=== PATIENT | male | born 1935 | race Caucasian/White ===

== ENCOUNTER 2017-02-03 06:07 | Day surgery (SDC) | payer MEDICARE, BC ==
[~2017-02-03] VITALS: Ht 180.3 cm; Wt 80.8 kg
[2017-02-03] VITALS (12 sets, daily range): BP systolic 118–146; BP diastolic 61–81; PULSE 70–96; RESP 16–18; TEMP 97.7–98.6; O2SAT 92–99
[~2017-02-03 06:07] MED LIST: CLOP75 PO; FISH1000 PO; GLUC750T22 PO; GLUCTAB PO; LIPI40TA PO; PRIM50TA PO; PROT40TA PO; TAB-TAB PO; VIAG50TA PO
[2017-02-03 07:33] LABS: AUTOMATED NEUTROPHIL # 4.1 TH/MM3 (1.8-7.7); BASOPHIL % 0.3 % (0.0-2.0); EOSINOPHIL # 0.2 TH/MM3 (0-0.4); EOSINOPHIL % 3.3 % (0.0-4.0); HEMATOCRIT 39.9 % (39.0-51.0); LYMPH % 29.7 % (9.0-44.0); LYMPHOCYTE # 2.1 TH/MM3 (1.0-4.8); MEAN CELL VOLUME 87.5 FL (80.0-100.0); MEAN CORPUSCULAR HEMOGLOBIN 30.5 PG (27.0-34.0); MEAN CORPUSCULAR HGB CONC 34.9 % (32.0-36.0); MONO % 8.3 % (0.0-8.0); NEUT % 58.4 % (16.0-70.0); PLATELET COUNT 71 TH/MM3 (150-450); RED BLOOD COUNT 4.56 MIL/MM3 (4.50-5.90); RED CELL DISTRIBUTION WIDTH 13.2 % (11.6-17.2)
[2017-02-03 07:38] LABS: HEMO FLAGS AUTO DIFF
[2017-02-03 07:43] LABS: APTT (PATIENT) 26.3 SEC (24.3-30.1); INTERNATIONAL NORMALIZED RATIO 1.1 RATIO; PROTHROMBIN TIME - PATIENT 11.2 SEC (9.8-11.6)
[2017-02-03 07:53] LABS: BICARBONATE 29.2 MEQ/L (21.0-32.0); POTASSIUM 4.1 MEQ/L (3.5-5.1)
[2017-02-03 08:12] LABS: PLATELET ESTIMATE SMEAR LOW (NORMAL); PLATELET MORPHOLOGY NORMAL (NORMAL); SCAN/DIFF AUTO DIFF CONFIRMED
[2017-02-03] MEDS ORDERED: GLIM1TAB PO (08:17)
[2017-02-03] MEDS ORDERED: ASPI-516 CHEW (08:17)
[2017-02-03] MEDS ORDERED: RANI150T PO (08:17)
[2017-02-03] MEDS ORDERED: ATOR80TA45 PO (08:17)
[2017-02-03] MEDS ORDERED: SITA1TAB2 PO (08:17)
[2017-02-03] MEDS ORDERED: VIAG100T PO (08:17)
[2017-02-03] MEDS ORDERED: FINA15GE TOPICAL (08:17)
[2017-02-03] MEDS ORDERED: HEPARIN-NS/PF INJ 1,000 ML ONE (08:34)
[2017-02-03] MEDS ORDERED: MIDAZOLAM HCL 2 MG/2 ML VIAL ONE (08:40)
[2017-02-03] MEDS ORDERED: HEPARIN SODIUM - IV 10,000 UNITS/10 ML VIAL ONE (09:18)
[2017-02-03] MEDS ORDERED: CLOPIDOGREL 300 MG TAB ONE (11:25)
--- NOTE | 2017-02-03 11:30 | CATHPROC ---
MVP Interactive HIS Report Study Information Study Number Admission Scheduled Start Study Start [id number] Feb 03 2017 6:07AM 02/03/2017 Feb 03 2017 8:33AM [facility] Service Cath Endovascular Study Admit Source Facility Department Other [facility] Physician and Clinical Staff Initial [facility] Pharmacist Joel Fonseca RN Recorder Nichelle Joyce,RT(R) Scrub Ion Hugo,RT(R) Procedures Performed Procedure Location (Site) Vessel Name Angiogram (manual) Fem Sup. (left) Femoral Art Angiogram (manual) Fem Sup. (right) Femoral Art Angiogram (manual) Iliac L. Com. (L4) [place] Art. Angiogram (manual) Peroneal (left) Popliteal Angiogram (manual) Peroneal (right) Popliteal Angiogram (manual) Popliteal L (L10) Popliteal Angiogram (manual) Popliteal R (R10) Popliteal Angiogram (manual) Tib, Ant. (left) Popliteal Angiogram (manual) Tib, Post (Left) Popliteal EVENT ORGANIZER Tib, Ant. (left) Popliteal Wire insertion Fem Art (right) Femoral Art Equipment Time Machine Boss Description Size Mfg Part Number Used/Scraped [id number] 11:06 [employer] WIRE, ASAHI GRANDSLAM 300CM 300CM Used *[id number] DBP- CARDIOVASCULAR CATHETER, MICRO CROWN 09:45 [id number] Used SYSTEMS INC. 1.25MM *[id number] CARDIOVASCULAR VPR-[id number] 09:43 WIRE, FIRM (VIPER) 335 Used SYSTEMS INC. *[id number] CXI-4.0-35-135- 09:27 COOK/FREDERIC CATHETER, FR4 CXI SUPPORT FR 4 Used P-NS-0 *[id number] KCFW-5.0-38-55- 09:23 COOK/FREDERIC SHEATH, FR5 RAABE 55CM FR 5 Used RB 532-523 08:38 CORDIS/ FREDERIC RIM SUPER TORQUE CATHETER FR 5 Used *[id number] [id number] *[id number] 534-560T *[id number] [id number] *[id number] BALLOON, AMPHIRION DEEP 2 X [id number] 10:06 [employer] 150CM Used 210 150CM *[id number] BALLOON, AMPHIRION DEEP 2.5 X [id number] 10:25 [employer] 150CM Used 40 150CM *[id number] 08:38 MALLINCKRODT SYRINGE, ANGIOMAT 150ML 150ML [id number] Used WIRE, CHOICE PT 300CM PT EX. 15747-47 09:31 Meditech 300CM Used SUPP *[id number] 08:38 [employer] INDUSTRIES PACK, CCL CUSTOM * Used *[id number] [id number] 08:38 MEDLINE PACER PEN, SKIN DUAL W/ RULER * Used *[id number] 08:38 [employer] MEDICAL WIRE, EXCHANGE 260CM 3MMJ 260CM Used *[id number] 08:38 NAMIC MANIFOLD, 4 PORT * Used *3567634 [id number] 08:38 NAMIC TUBING, HIGH PRESSURE 48" 48" Used *3120523 [id number] 09:03 NAMIC TUBING, HIGH PRESSURE 48" 48" Used *2689193 08:38 NYCOMED OMNIPAQUE, 300 MG, 150ML 150ML [id number] Used [id number] 08:38 [place] [employer] BLANKET,WARM AIR CCL * Used *[id number] [id number] 08:38 TERUMO MEDICAL SHEATH, FR5 TERUMO (10CM) FR 5 Used *[id number] 09:12 TERUMO MEDICAL/FREDERIC CATHETER, FR5 ANGLED 100CM FR 5 [id number] *[id number] Used WIRE, ANGLE GLIDE STIFF .035 [id number] 09:23 TERUMO MEDICAL/FREDERIC 260CM Used 260CM *[id number] WIRE, ANGLE GLIDE STIFF .035 [id number] 08:38 TERUMO MEDICAL/FREDERIC 260CM Used 260CM *[id number] WIRE, ANGLED GLIDE .035 [id number] 08:58 TERUMO MEDICAL/FREDERIC 260CM Used 260CM *[id number] Equipment Model, Serial, Lot Number and Expiration Data Description Model Number Serial Number Lot Number Expiration Date CATHETER, FR4 CXI SUPPORT [id number] 11-23-2019 CATHETER, MICRO CROWN [id number] 06-19-2018 1.25MM SHEATH, FR5 RAABE 55CM [id number] 12-09-2018 WIRE, CHOICE PT 300CM PT EX. [id number] 05-17-2018 SUPP WIRE, FIRM (VIPER) 335 [id number] 09-19-2018 History: Risk Factors Family History of Hypertension Dyslipidemia Previous CA Previous Heart Failure Premature CAD No No No No No Prior Valve Prior PCI Prior CABG Prior CABGDate Surgery No No Yes 08/29/1995 Cerebrovascular Peripheral Artery Chronic Lung On Dialysis Diabetes Diabetes Therapy Disease Disease Disease No No No No Yes Oral Labs Hgb (g/dl) Hct (%) RBC (MIL/MM3) WBC (l/cumm) Platelets (thousands) 11.60-17.00 35.00-51.00 4.00-5.90 4.00-11.00 150.00-450.00 13.9 39.9 4.5 7 71 Glucose (mg/dl) BUN (mg/dl) Creatinine (mg/dl) BUN:Creatinine (1:x) 74.00-106.00 7.00-18.00 0.50-1.30 10.00-20.00 203 23 1.1 20.9 Na (meq/l) K (meq/l) Cl (meq/l) CO2 (mmol/L) Ca (mg/dl) 136.00-145.00 3.50-5.10 98.00-107.00 21.00-32.00 8.50-10.10 141 4.1 106 29.2 8.8 PT (sec) PTT (sec) INR (PTT:PT) 9.80-11.60 24.30-30.10 0.90-1.10 11.2 26.3 1.1 CPK-MB (ng/ML) 0.50-3.60 Not Drawn Medication Medication Total Dose (Bolus/Oral) Medication Total Dosage/Unit 1% XYLOCAINE 20 mL FENTANYL 75 mcg HEPARIN 7800 units PLAVIX 300 mg VERSED 0.5 mg Medications (Bolus/Oral) Medication Time Given Dosage/Unit Administered By Reason VERSED 02/03/2017 8:56:39 AM 0.5 mg Joel Fonseca 0.5 mg VERSED given in lab by Joel Fonscea RN via Peripheral IV. Ordered by Chris Grayson FENTANYL 02/03/2017 8:57:54 AM 25 mcg Joel Fonseca 25 mcg FENTANYL given in lab by Joel Fonseca RN via Peripheral IV. Ordered by Chris Grayson. 1% XYLOCAINE 02/03/2017 8:58:40 AM 20 mL Chris Grayson 20 mL 1% XYLOCAINE given in lab by Chris Grayson in Right Groin via Subcutaneous. FENTANYL 02/03/2017 9:21:50 AM 50 mcg Joel Fonseca 50 mcg FENTANYL given in lab by Joel Fonseca RN via Peripheral IV. HEPARIN 02/03/2017 9:27:59 AM 5800 units Joel Fonseca 5800 units HEPARIN given in lab by Joel Fonseca RN via Peripheral IV. HEPARIN 02/03/2017 9:51:09 AM 2000 units Joel Fonseca 2000 units HEPARIN given in lab by Joel Fonseca RN via Peripheral IV. 02/03/2017 11:30:37 PLAVIX 300 mg Joel Fonseca AM 300 mg PLAVIX given in lab by Joel Fonseca RN via Oral. Medication (Drip) Medication Time Given Dosage/Unit Concentration/Unit Diluent (ml) Solution IV Solutions 02/03/2017 8:38:29 AM 0 mL (IV) 500 NaCl .9 Patient arrived on IV Solutions in Left Antecubital via Peripheral IV. Pump/Drip Flow = 20 ml/hr usin g NaCl .9. Ordered by Chris Grayson Initial Case Assessment Cardiovascular HR Rhythm NIBP Chest Pain 74 reg 152/83 0 Skin color Skin Normal Warm Circulatory - Right Pulses Dorsalis Pedis Femoral 2 3 Scale (0,1,2,3,4,d) Circulatory - Left Pulses Dorsalis Pedis Femoral 1 3 Scale (0,1,2,3,4,d) Circulatory - Lower Extremities Color Lower Right Color Lower Left Normal Normal Neurological State Oriented to time-place- Alert Moves all extremities person Respiration - General Respiration Rate SpO2 (%) (B/min) 17 99 Final Case Assessment Cardiovascular HR Rhythm NIBP Chest Pain 75 REG 128/74 0 Edema Present Skin color Skin None Normal Warm Circulatory - Right Pulses Dorsalis Pedis Femoral 2 3 Scale (0,1,2,3,4,d) Circulatory - Left Pulses Dorsalis Pedis Femoral 1 3 Scale (0,1,2,3,4,d) Circulatory - Lower Extremities Color Lower Right Color Lower Left Normal Normal Neurological State Oriented to time-place- Alert Moves all extremities person Respiration - General Respiration Rate SpO2 (%) (B/min) 16 95 Chronological Log Time Study Chronological Log 8:15:00 Patient arrived via Bed. 8:16:00 Patient Name, D.O.B, / Armband Verified By R.N. 8:17:00 Consent signed by the physician and the patient and verified by the [facility] staff. 8:18:00 Pre-op and post- op instructions given; patient acknowledges understanding of instructions. 8:19:00 Verbal Stimulation=2 Physical Stimulation=2 Airway=2 Respiration=2 TOTAL=8. (0=absent, 1=li mited, 2=present) 8:36:36 Reference ECG taken Vitals capture started with the following parameters, Patient=Adult, Interval=5 min, Initial Pr qjmqgw=857 mmHg, 8:37:35 Deflation Rate=5 mmHg, Cuff placed on Right Arm 8:38:12 Patient has been NPO for More than 6Hrs. Skin Breakdown-none 8:38:14 8:38:19 HR=73 bpm, XKBC=307/79 mmhg, SpO2=99.0 %, Resp=12 B/min, Pain=0, Annabella=10, Bejarano=2 8:38:20 Patient Warmer Placed on the Table. 8:38:21 A # 20 IV was noted in the Antecubital (left). Grade = 0 Patient arrived on IV Solutions in Left Antecubital via Peripheral IV. Pump/Drip Flow = 20 ml/h r using NaCl .9. Ordered 8:38:29 by Chris Grayson 8:43:13 HR=73 bpm, RMCI=211/83 mmhg, UlD1=886.0 %, Resp=10 B/min, Pain=0, Annabella=10, Bejarano=2 8:43:22 History and physical on the chart or being dictated. Assessment: Initial Case, HR=74 BPM, Rhythm=reg, AQIR=192/83 mmhg, Chest Pain=0, Color=Normal, S kin = Warm Right Pulses: Jaguar Ped=2, Femoral=3 Left Pulses: Jaguar Ped=1, Femoral=3 8:43:23 Lower Right Extremities: Color=Normal Lower Left Extremities: Color=Normal Neurological: State=Alert, Ox3, SPIVEY Respiration: Resp=17 B/min, SpO2=99 % 8:44:26 Bilateral groins prepped with 2% chlorhexidine, and draped after a 3 minute waiting time. 8:44:37 left lower leg prepped 8:48:13 Pressure channel 1 zeroed. 8:48:19 HR=74 bpm, IVZH=875/72 mmhg, SpO2=99.0 %, Resp=12 B/min, Pain=0, Annabella=10, Bejarano=2 8:51:35 MD arrived. 8:53:14 HR=76 bpm, LIVN=213/78 mmhg, SpO2=98.0 %, Resp=8 B/min, Pain=0, Annabella=10, Bejarano=2 Time Out. Correct patient, correct procedure, correct physician, power injector not loaded with contrast with surgical 8:56:14 team present. Time Out Concurred by MD and individual staff in procedure. Time Out #2 - Consents verified, patient in correct position, all results are labled and display ed, safety precautions 8:56:24 taken, antibiotics administered. Time out concurred by MD, individual staff and MOBILE MARKETING SPECIALIST. 8:56:27 Case Start 8:56:28 Verbal Stimulation=2 Physical Stimulation=2 Airway=2 Respiration=2 TOTAL=8. (0=absent, 1=davis ited, 2=present) 8:56:39 0.5 mg VERSED given in lab by Joel Fonseca RN via Peripheral IV. Ordered by Zhang Grayson 8:57:54 25 mcg FENTANYL given in lab by Joel Fonseca RN via Peripheral IV. Ordered by Autumn Grayson 8:58:15 HR=73 bpm, WRTQ=705/75 mmhg, SpO2=97.0 %, Resp=12 B/min, Pain=0, Annabella=10, Bejarano=2 8:58:40 20 mL 1% XYLOCAINE given in lab by Chris Grayson in Right Groin via Subcutaneous. 8:59:46 Access site was Right Femoral Artery. 9:00:24 A wire was inserted via Fem Art (right). 9:00:39 A SHEATH, FR5 TERUMO (10CM) FR 5 was advanced into the Fem Art (right) using the Percutaneou s technique. Recorded Pressure: Ao, HR=75, Condition=Condition 1 9:01:55 (Aorta) Ao 156/64/98 9:03:16 HR=73 bpm, AFSR=997/77 mmhg, SpO2=95.0 %, Resp=11 B/min, Pain=0, Annabella=10, Bejarano=2 9:04:22 Fem Sup. (right) angiogram, manually injected. 9:05:12 Popliteal R (R10) angiogram, manually injected. 9:05:21 Peroneal (right) angiogram, manually injected. 9:08:17 HR=76 bpm, MYRX=637/78 mmhg, SpO2=95.0 %, Resp=12 B/min, Pain=0, Annabella=10, Bejarano=2 9:11:19 Iliac L. Com. (L4) angiogram, manually injected. 9:12:41 A WIRE, ANGLED GLIDE .035 260CM 260CM was inserted via Fem Art (right). 9:13:18 HR=77 bpm, JYGO=311/82 mmhg, SpO2=96.0 %, Resp=13 B/min, Pain=0, Annabella=10, Bejarano=2 9:15:06 Fem Sup. (left) angiogram, manually injected. 9:15:11 Popliteal L (L10) angiogram, manually injected. 9:15:29 Peroneal (left) angiogram, manually injected. 9:17:21 Tib, Ant. (left) angiogram, manually injected. 9:17:29 Tib, Post (Left) angiogram, manually injected. 9:18:19 HR=76 bpm, DKLE=190/78 mmhg, SpO2=95.0 %, Resp=12 B/min, Pain=0, Annabella=10, Bejarano=2 9:21:50 50 mcg FENTANYL given in lab by Joel Fonseca RN via Peripheral IV. 9:23:20 HR=76 bpm, ISYI=630/75 mmhg, SpO2=96.0 %, Resp=14 B/min, Pain=0, Annabella=10, Bejarano=2 9:23:44 A WIRE, ANGLE GLIDE STIFF .035 260CM 260CM was inserted via Fem Art (right). A SHEATH, FR5 RAABE 55CM FR 5 was exchanged in the Fem Art (right). This was necessary in order for catheter 9:24:41 support. 9:26:31 Wire removed A CATHETER, FR4 CXI SUPPORT FR 4 was advanced over a wire. OMNIPAQUE, 300 MG, 150ML 150ML was u sed for 9:27:11 injections. 9:27:59 5800 units HEPARIN given in lab by Joel Fonseca, RN via Peripheral IV. 9:28:19 HR=78 bpm, WHZJ=685/74 mmhg, SpO2=93.0 %, Resp=11 B/min, Pain=0, Annabella=10, Bejarano=2 9:30:44 Wire removed 9:31:33 A WIRE, CHOICE PT 300CM PT EX. SUPP 300CM was inserted via Fem Art (right). 9:33:20 HR=77 bpm, XWBZ=931/75 mmhg, SpO2=94.0 %, Resp=9 B/min, Pain=0, Annabella=10, Bejarano=2 9:36:10 Tib, Ant. (left) angiogram, manually injected. 9:36:18 Tib, Post (Left) angiogram, manually injected. 9:38:17 HR=77 bpm, RSRW=739/76 mmhg, SpO2=95.0 %, Resp=12 B/min, Pain=0, Annabella=10, Bejarano=2 9:42:47 A catheter was advanced over a wire. OMNIPAQUE, 300 MG, 150ML 150ML was used for injections. CXI 2.6FR 9:43:20 HR=77 bpm, PNJO=028/72 mmhg, SpO2=94.0 %, Resp=11 B/min, Pain=0, Annabella=10, Bejarano=2 9:45:38 Activated Clotting Time Drawn 9:48:19 HR=75 bpm, NFQP=404/67 mmhg, SpO2=97.0 %, Resp=12 B/min, Pain=0, Annabella=10, Bejarano=2 9:50:33 ACT (Normal Range 90-180) = 264 9:51:09 2000 units HEPARIN given in lab by Joel Fonseca, RN via Peripheral IV. 9:52:22 An CATHETER, MICRO CROWN 1.25MM catheter was inserted into the Tib, Ant. (left). 9:52:52 ATHERECTOMY IN PROGRESS 9:53:18 HR=76 bpm, WNCL=849/71 mmhg, SpO2=96.0 %, Resp=13 B/min, Pain=0, Annabella=10, Bejarano=2 ATHERECTOMY IN PROGRESS 9:55:53 9:58:21 HR=75 bpm, HBWA=334/74 mmhg, SpO2=96.0 %, Resp=9 B/min, Pain=0, Annabella=10, Bejarano=2 9:59:44 ATHERECTOMY Catheter was removed w/o difficulty 10:01:47 Peroneal (left) angiogram, manually injected. 10:01:55 Tib, Ant. (left) angiogram, manually injected. 10:03:22 HR=76 bpm, KMVT=168/78 mmhg, SpO2=96.0 %, Resp=13 B/min, Pain=0, Annabella=10, Bejarano=2 A BALLOON, AMPHIRION DEEP 2 X 210 150CM 150CM was inserted over WIRE, FIRM (Crum[employer] Bake Shop[employer]) 335 via the Tib, Ant. 10:05:07 (left). 10:07:30 In the Tib, Ant. (left) a BALLOON, AMPHIRION DEEP 2 X 210 150CM 150CM was inflated to 8 abdulkadir s for 180 seconds. 10:08:21 HR=72 bpm, LKTN=686/72 mmhg, SpO2=95.0 %, Resp=9 B/min, Pain=0, Annabella=10, Bejarano=2 10:13:23 HR=73 bpm, QQHN=959/73 mmhg, SpO2=95.0 %, Resp=11 B/min, Pain=0, Annabella=10, Bejarano=2 10:13:30 In the Tib, Ant. (left) a BALLOON, AMPHIRION DEEP 2 X 210 150CM 150CM was inflated to 8 abdulkadir s for 420 seconds. 10:18:22 HR=72 bpm, CJQQ=866/74 mmhg, SpO2=94.0 %, Resp=9 B/min, Pain=0, Annabella=10, Bejarano=2 10:22:34 Balloon Removed. 10:23:19 HR=74 bpm, LBHV=952/75 mmhg, SpO2=95.0 %, Resp=8 B/min, Pain=0, Annabella=10, Bejarano=2 10:23:57 Tib, Ant. (left) angiogram, manually injected. A BALLOON, AMPHIRION DEEP 2.5 X 40 150CM 150CM was inserted over WIRE, FIRM (VIPER) 335 via the Tib, Ant. 10:25:12 (left). 10:28:22 HR=75 bpm, APOZ=448/77 mmhg, SpO2=95.0 %, Resp=8 B/min, Pain=0, Annabella=10, Bejarano=2 10:28:43 In the Tib, Ant. (left) a BALLOON, AMPHIRION DEEP 2.5 X 40 150CM 150CM was inflated to 10 a tms for 420 seconds. 10:33:27 HR=73 bpm, MHHE=323/68 mmhg, SpO2=94.0 %, Resp=4 B/min, Pain=0, Annabella=10, Bejarano=2 10:35:07 Tib, Ant. (left) angiogram, manually injected. 10:36:32 In the Tib, Ant. (left) a BALLOON, AMPHIRION DEEP 2.5 X 40 150CM 150CM was inflated to 14 a tms for 600 seconds. 10:38:26 HR=75 bpm, WBHZ=611/69 mmhg, SpO2=96.0 %, Resp=10 B/min, Pain=0, Annabella=10, Bejarano=2 10:43:27 HR=73 bpm, DKST=145/63 mmhg, SpO2=96.0 %, Resp=6 B/min, Pain=0, Annabella=10, Bejarano=2 10:47:07 Tib, Ant. (left) angiogram, manually injected. 10:48:16 In the Tib, Ant. (left) a BALLOON, AMPHIRION DEEP 2.5 X 40 150CM 150CM was inflated to 14 a tms for 600 seconds. 10:48:22 HR=75 bpm, BEVQ=144/71 mmhg, SpO2=95.0 %, Resp=10 B/min, Pain=0, Annabella=10, Bejarano=2 10:53:25 HR=74 bpm, AMPZ=559/71 mmhg, SpO2=95.0 %, Resp=8 B/min, Pain=0, Ananbella=10, Bejarano=2 10:58:24 HR=75 bpm, WOJB=783/69 mmhg, SpO2=95.0 %, Resp=8 B/min, Pain=0, Annabella=10, Bejarano=2 11:03:04 In the Tib, Ant. (left) a BALLOON, AMPHIRION DEEP 2.5 X 40 150CM 150CM was inflated to 14 a tms for 900 seconds. 11:03:24 Tib, Ant. (left) angiogram, manually injected. 11:03:25 HR=81 bpm, NQGU=690/67 mmhg, SpO2=94.0 %, Resp=1 B/min, Pain=0, Annabella=10, Bejarano=2 11:05:48 The previous wire was exchanged for a WIRE, TOBIAS BOOLAM 300CM 300CM. 11:08:24 HR=77 bpm, UJKD=212/68 mmhg, SpO2=94.0 %, Resp=0 B/min, Pain=0, Annabella=10, Bejarano=2 11:09:39 Balloon Removed. 11:10:40 A catheter was advanced over a wire. contrast was used for injections. 2.4 CXI INSERTED WIRE REMOVED 11:12:15 11:12:38 Tib, Ant. (left) angiogram, manually injected. WITH XCI CATHETER 11:13:27 HR=75 bpm, OOVZ=791/70 mmhg, SpO2=95.0 %, Resp=12 B/min, Pain=0, Annabella=10, Bejarano=2 11:13:47 Tib, Ant. (left) angiogram, manually injected. 11:14:11 Catheter was removed 11:16:13 Popliteal L (L10) angiogram, manually injected. 11:16:50 Activated Clotting Time Drawn 11:18:26 HR=80 bpm, ITGI=543/74 mmhg, SpO2=95.0 %, Resp=7 B/min, Pain=0, Annabella=10, Bejarano=2 A SHEATH, FR5 TERUMO (10CM) FR 5 was exchanged in the Fem Art (right). This was necessary in or finn to insure 11:19:25 sterility. Assessment: Final Case, HR=75 BPM, Rhythm=REG, NHUE=999/74 mmhg, Chest Pain=0, Edema=None, [place] r=Normal, Skin = Warm Right Pulses: Jaguar Ped=2, Femoral=3 Left Pulses: Jaguar Ped=1, Femoral=3 11:20:38 Lower Right Extremities: Color=Normal Lower Left Extremities: Color=Normal Neurological: State=Alert, Ox3, SPIVEY Respiration: Resp=16 B/min, SpO2=95 % 11:21:23 Catheter(s) removed without difficulty 11:21:29 In the Fem Art (right) the SHEATH, FR5 TERUMO (10CM) FR [address] by Chris Grayson 11:21:47 ACT (Normal Range 90-180) = 253 11:21:56 Case End 11:21:58 Sterile dressing applied to site 11:23:16 Cine recording checked. 11:23:17 Bedside Report will be given. 11:23:20 Contrast Scanned 11:23:27 HR=76 bpm, SUZA=910/77 mmhg, SpO2=94.0 %, Resp=11 B/min, Pain=0, Annabella=10, Bejarano=2 11:24:31 Case complication noted. Complication: Case Complications 11:24:51 Arterial: Perforation, extrav 11:27:01 In the Fem Art (right) the SHEATH, FR5 TERUMO (10CM) FR [address] by Ion Hugo, RT(R). 11:30:37 300 mg PLAVIX given in lab by Joel Fonseca, RN via Oral. End Study - Contrast Media Used In Study Contrast Total Opened (mL) Total Used (mL) Total Wasted (mL) Omnipaque 130 130 0 End Study - Maximum Contrast Load Max Contrast Load (mL) 378.7 End Study - Radiation Exposure Fluoro Time (minutes) 23.0 End Study - Patient Disposition Complications Transferred To Interventional Outcome Yes Outpatient Bed successful
[2017-02-03] MEDS ORDERED: MISC INFORMATION XX ONE (11:45)
[2017-02-03] MEDS ORDERED: ACETAMINOPHEN 325 MG TAB PO PRN (11:45)
[2017-02-03] MEDS ORDERED: ONDANSETRON HCL 4 MG/2 ML VIAL IV PUSH PRN (11:45)
[2017-02-03] MEDS ORDERED: oxyCODONE/ACETAMINOPHEN 10 MG/325 MG TAB PO PRN (11:45)
[2017-02-03] MEDS ORDERED: oxyCODONE/ACETAMINOPHEN 5 MG/325 MG TAB PO PRN (11:45)
[2017-02-03] MEDS ORDERED: MORPHINE SULFATE 2 MG/ML INJ IV PUSH PRN (13:00)
[2017-02-03] MEDS ORDERED: PLAV75TA29 PO (17:48)
--- NOTE | 2017-02-03 18:04 | MA ---
cc: CHRIS CLEMENTE DO DATE: February 03, 2017 PROCEDURE Bilateral lower extremity angiogram, left anterior tibial artery status post CSI atherectomy was balloon angioplasty. PREPROCEDURE DIAGNOSIS Left lower extremity claudication as well as rest pain, [place] class IV. POSTPROCEDURE DIAGNOSIS Peripheral artery disease, right lower extremity with mild disease other than right anterior tibial occluded with two-vessel runoff, left lower extremity with mild disease and posterior tibial occluded, peroneal patent, anterior tibial status post CSI atherectomy with balloon angioplasty. MEDICATIONS 1. Versed 0.5 mg. 2. Fentanyl 75 mcg. 3. Heparin 7,800 units. 4. Plavix 300 mg. CONTRAST 130 cc Fluoroscopy 23.0 minutes Moderate sedation 140 minutes ESTIMATED BLOOD LOSS 20 cc PROCEDURAL SUMMARY Bautista Boles is a pleasant 81-year-old male who sees my partner Dr. Chapa in the office and was having significant pain in his left lower extremity. Pain seemed to come on with any type of walking and he started getting to the point where he was having pain whenever his leg was laid horizontal especially at night while sleeping. He had ABIs which were relatively negative but he had ultrasound which showed significant disease in the ragyh-vda-dlsm areas of both the right and left legs. Because of this he was recommended peripheral angiogram. PROCEDURE: Risks, benefits and alternatives were explained to him and he consented as such. He was brought to lab and prepped in the usual sterile fashion. Right femoral artery was accessed using a modified Seldinger technique and placement of a 5-[place]izen [place] sheath. This was easily aspirated and flushed. A right lower extremity angiogram was done through the sheath with utilization of digital subtraction. A IM catheter and Glidewire was used to cross over into the left lower extremity. A glide catheter was then used for selective angiography of the left lower extremity. FINDINGS Right lower extremity right iliac overall tortuous and no significant disease. The right common femoral artery has no significant disease. The SFA has mild disease throughout but no significant lesions. Distally at the trifurcation there is occlusion of the anterior tibial with two-vessel runoff to the lower extremity. Left lower extremity iliac overall is tortuous but no significant disease. There is mild disease throughout the common femoral artery is her as well as the SFA but no significant disease. Distally at the trifurcation the peroneal artery is the only vessel that goes all the way to the foot without disease. The posterior tibial artery has multiple occlusions throughout the proximal portion and distally there is some mild collateralization. The anterior tibial has multiple significant lesions and occlusions throughout the mid to distal portions. INTERVENTION: Because of the patient's significant rest pain as well as only one-vessel runoff to the left lower extremity, I felt that intervention on the left anterior tibial with his best option 05 better flow to his lower extremity. A stiff glide wire was then placed into the SFA, glide catheter was removed and sheath was exchanged for a 5-[place] 55-cm RAABE sheath, Heparin was given as an anticoagulant. A CSI catheter was then advanced over the Glidewire to the trifurcation. A Choice CT was then used to advance through the multiple lesions and into the midfoot. The CXI catheter was then exchanged for a 2-[place] CXI and this was taken into the distal lower extremity. Wire was exchanged for a viper wire and catheter was removed. CSI enterectomy device was then taken into the mid anterior tibial and multiple runs were done throughout the mid to distal anterior tibial. Atherectomy device was removed and during angiogram there is noted to be a small perforation in the distal anterior tibial. A Amphirion tapered balloon (2-2.5) was then placed in the anterior tibial and inflated first for 3 minutes and then for 7 minutes. There still seen to be a small perforation so a Amphirion balloon (2.5 x 40) was then placed and inflated for 7 minutes, 10 minutes and finally 15 minutes. At this time the viper wire was exchanged for a [place]. Balloon was removed and final angiography was done through a CXI catheter which showed a small perforation distally and overall resolution of significant disease in the anterior tibial with good runoff. It was felt at this time that multiple attempts at balloon tamponade were not successful and that the overall perforation is relatively small and should Tamponade itself off once ACTs are lower. The ARRBE sheath was exchanged for a short 5-[place] sheath. Postprocedure, the patient's leg was neurovascularly intact with excellent pulses. The patient left the laboratory technologist cardiovascularly stable. IMPRESSION Peripheral artery disease as above, status post CSI atherectomy and balloon angioplasty of left anterior tibial due to significant rest pain ( [place] class IV). RECOMMENDATIONS 1. Mr. Boles underwent intervention of his left AT for rest pain and he will continue on his aspirin and be started on Plavix therapy. 2. I have recommended he attempt to be on Plavix first 30 days if possible although this may be difficult as he does have a history of epistaxis with Plavix. If at any time he has significant bleeding then this can be stopped and he will continue on aspirin therapy. 3. He did have a small perforation and his leg will be wrapped with an Clive bandage. I asked that we continue with neurovascular checks distally and any concerns arise he may need to be evaluated for compartment syndrome. Overall chances of this are relatively small. 4. It watched overnight and evaluated in the morning and if stable will be discharged home for followup with Dr. Chapa in the next 3-4 weeks. 5. I asked that he not lift more than 10 pounds for the next 3-4 days. After that he should attempt to exercising, to increase his walking distance and speed for treatment of his peripheral artery disease. Thank you for allowing me to see Bautista Boles if there are any questions please do not hesitate to call. Chris Clemente DO VGP/mh /5:20 PM /5:46 PM
[2017-02-03] MEDS: FAMOTIDINE 20 MG TAB PO SCH (20:58)
[2017-02-03] MEDS ORDERED: ATORVASTATIN 80 MG TAB PO SCH (21:00)
[2017-02-04] VITALS (12 sets, daily range): BP systolic 117–125; BP diastolic 59–80; PULSE 60–83; RESP 16–18; TEMP 98.7; O2SAT 96–99
[2017-02-04 06:27] LABS: BASOPHIL % 0.3 % (0.0-2.0); EOSINOPHIL # 0.2 TH/MM3 (0-0.4); EOSINOPHIL % 3.1 % (0.0-4.0); HEMATOCRIT 38.2 % (39.0-51.0); LYMPH % 28.2 % (9.0-44.0); LYMPHOCYTE # 1.9 TH/MM3 (1.0-4.8); MEAN CELL VOLUME 87.3 FL (80.0-100.0); MEAN CORPUSCULAR HEMOGLOBIN 30.1 PG (27.0-34.0); MEAN CORPUSCULAR HGB CONC 34.5 % (32.0-36.0); MONO % 7.7 % (0.0-8.0); NEUT % 60.7 % (16.0-70.0); PLATELET COUNT 67 TH/MM3 (150-450); RED BLOOD COUNT 4.37 MIL/MM3 (4.50-5.90); RED CELL DISTRIBUTION WIDTH 13.1 % (11.6-17.2); WHITE BLOOD COUNT 6.6 TH/MM3 (4.0-11.0)
[2017-02-04 06:39] LABS: HEMO FLAGS AUTO DIFF
[2017-02-04 06:52] LABS: BICARBONATE 27.1 MEQ/L (21.0-32.0)
[2017-02-04 07:25] LABS: PLATELET ESTIMATE SMEAR LOW (NORMAL); PLATELET MORPHOLOGY NORMAL (NORMAL); SCAN/DIFF AUTO DIFF CONFIRMED
[2017-02-04] MEDS ORDERED: GLIMEPIRIDE 1 MG TAB PO SCH (09:00)
[2017-02-04] MEDS ORDERED: ASPIRIN 81 MG CHEW TAB CHEW SCH (09:00)
[2017-02-04] MEDS ORDERED: CLOPIDOGREL 75 MG TAB PO SCH (09:00)
[2017-02-04] MEDS: FAMOTIDINE 20 MG TAB PO SCH (09:01)
--- NOTE | 2017-02-04 09:32 | EKG ---
Date Performed: 02/03/2017 Time Performed: 07:32:02 PTAGE: 81 years EKG: Sinus rhythm . Possible inferior infarct - age undetermined Abnormal ECG PREVIOUS TRACING : 10/16/2003 06.23 DOCTOR: Mignon Velarde Interpretating Date/Time 02/04/2017 09:32:12
--- NOTE | 2017-02-04 10:15 | PD.CARD.PN ---
Subjective Subjective Remarks Denies leg pain, groin pain, dyspnea, CP. Objective Medications Item Value Date Time Aspirin 81 mg 02/04/17 09 (Aspirin Chew) DAILY/CHEW 02/04/17900 Clopidogrel 75 mg 02/04/17 0900 Bisulfate DAILY/PO 02/04/17900 (Plavix) Atorvastatin 80 mg 02/03/17 2100 Calcium HS/PO 02/03/172057 (Lipitor) Current Medications Medications (Trade) Dose Ordered Sig/[place] Route Start Time Stop Time Status Last Admin (Aspirin Chew) 81 mg DAILY CHEW 02/04/17 09:00 02/04/17 09:01 (Lipitor) 80 mg HS PO 02/03/17 21:00 02/03/17 20:58 (Amaryl) 1 mg DAILY PO 02/04/17 09:00 02/04/17 09:01 (Januvia) 100 mg DAILY PO 02/04/17 09:00 02/04/17 09:01 (Pepcid) 20 mg BID PO 02/03/17 21:00 02/04/17 09:01 (Tylenol) 325 mg Q4H PRN PO 02/03/17 11:45 (Percocet 5-325 Mg) 1 tab Q4H PRN PO 02/03/17 11:45 (Percocet 10-325 Mg) 1 tab Q4H PRN PO 02/03/17 11:45 (Morphine Inj) 2 mg Q30M PRN IV PUSH 02/03/17 13:00 (Plavix) 75 mg DAILY PO 02/04/17 09:00 02/04/17 09:01 (Zofran Inj) 4 mg Q4H PRN IV PUSH 02/03/17 11:45 Vital Signs / I&O Vital Signs Date Time Temp Pulse Resp B/P (MAP) Pulse Ox O2 Delivery O2 Flow Rate FiO2 02/04/17 10:00 83 02/04/17 09:00 74 02/04/17 08:00 70 02/04/17 07:00 98.7 76 16 125/80 (95) 99 02/04/17 07:00 74 02/04/17 06:00 64 02/04/17 05:00 62 02/04/17 04:00 60 02/04/17 03:25 71 18 117/59 (78) 96 02/04/17 03:00 66 02/04/17 02:00 64 02/04/17 01:00 66 02/04/17 00:00 68 02/03/17 23:30 98.0 78 16 146/69 (94) 96 02/03/17 23:00 82 02/03/17 22:00 96 02/03/17 21:00 78 02/03/17 20:00 74 02/03/17 19:00 98.6 75 16 137/70 (92) 96 02/03/17 19:00 75 02/03/17 18:00 76 02/03/17 17:00 70 02/03/17 16:00 70 02/03/17 15:00 98.1 73 18 118/61 (80) 94 02/03/17 15:00 74 02/03/17 14:18 98.1 73 16 139/69 (92) 92 I/O 02/03/17 02/03/17 02/03/17 02/04/17 02/04/17 02/04/17 07:00 15:00 23:00 07:00 15:00 23:00 Intake Total 480 ml 240 ml Output Total 300 ml 400 ml Balance 180 ml -160 ml Intake Oral 480 ml 240 ml Output Urine Total 300 ml 400 ml # Bowel Movements 0 1 Physical Exam GENERAL: Well developed, well nourished. No acute distress. HEENT: Jugular venous pressure is normal. CHEST: Lungs clear to auscultation bilaterally. Unlabored respiratory effort. CARDIAC: Regular rate and rhythm without S3, S4. I/ LELAND RUSB. ABDOMEN: Soft, nontender, no hepatosplenomegaly. Bowel sounds present. EXTREMITIES: No clubbing, cyanosis, or edema. Normal distal LE pulses. Laboratory Laboratory Tests Test 02/04/17 05:48 White Blood Count 6.6 TH/MM3 Red Blood Count 4.37 MIL/MM3 Hemoglobin 13.2 GM/DL Hematocrit 38.2 % Mean Corpuscular Volume 87.3 FL Mean Corpuscular Hemoglobin 30.1 PG Mean Corpuscular Hemoglobin Concent 34.5 % Red Cell Distribution Width 13.1 % Platelet Count 67 TH/MM3 Mean Platelet Volume 10.0 FL Neutrophils (%) (Auto) 60.7 % Lymphocytes (%) (Auto) 28.2 % Monocytes (%) (Auto) 7.7 % Eosinophils (%) (Auto) 3.1 % Basophils (%) (Auto) 0.3 % Neutrophils # (Auto) 4.0 TH/MM3 Lymphocytes # (Auto) 1.9 TH/MM3 Monocytes # (Auto) 0.5 TH/MM3 Eosinophils # (Auto) 0.2 TH/MM3 Basophils # (Auto) 0.0 TH/MM3 CBC Comment AUTO DIFF Differential Comment AUTO DIFF CONFIRMED Platelet Estimate LOW Platelet Morphology Comment NORMAL Blood Urea Nitrogen 25 MG/DL Creatinine 0.97 MG/DL Random Glucose 179 MG/DL Calcium Level 8.5 MG/DL Sodium Level 139 MEQ/L Potassium Level 4.0 MEQ/L Chloride Level 104 MEQ/L Carbon Dioxide Level 27.1 MEQ/L Anion Gap 8 MEQ/L Estimat Glomerular Filtration Rate 74 ML/MIN Assessment and Plan Problem List: (1) Peripheral vascular disease ICD Codes: I73.9 - Peripheral vascular disease, unspecified Status: Chronic Plan: Doing well s/p CSI atherectomy and LINER CHECKER of left AT. Small perforation during case, clinically insignificant. No pain or swelling of LLE. Distal pulses good. Discharge today, 4 week f/u with Dr. Chapa. Continue Plavix and aspirin. Code Status full code Discussed Condition With patient Artis Dove MD Feb 04, 2017 10:15
== END 2017-02-04 11:30 | disposition home or self-care (01) ==
LOC: HDIC 06:07 → HCAT 06:07 → HCPC 14:15 → HCAT 02-04 11:30
PROVIDERS: ATTEND Nuclear Medicine Nuclear Cardiology
DX: I70.212 Atherosclerosis of native arteries of extremities with intermittent claudication, left leg (principal); I73.9 Peripheral vascular disease, unspecified; M79.662 Pain in left lower leg
CPT/HCPCS: 36247; 37229; 75716; 80048; 85002; 85025; 85347; 85610; 85730; 93005; C1714; C1725; C1751; C1769; C1887; C1893; J1644; J2250; J3010; 33282; C1764